=== PATIENT | female | born 1995 ===

== ENCOUNTER 2021-06-25 09:11 | Inpatient (IN) | payer MEDICAID ==
[2021-06-25] MEDS ORDERED: Ondansetron 4 MG/2 ML SDV IVPUSH PRN (09:23)
[2021-06-25] MEDS ORDERED: Sodium Chloride 0.9% 2.5 ML Syringe FLUSH PRN (09:23)
[2021-06-25] MEDS ORDERED: Lidocaine 1% 50 ML MDV INJECT PRN (09:23)
[2021-06-25] MEDS ORDERED: Tranexamic Acid 1,000 MG in Sodium Chloride 0.9% 100 ML IV PRN (09:23)
[2021-06-25] MEDS ORDERED: Butorphanol 1 MG/ML SDV IVPUSH PRN (09:23)
[2021-06-25] MEDS ORDERED: Sodium Chloride 0.9% 20 ML SDV IV PRN (09:23)
[2021-06-25] MEDS ORDERED: Misoprostol 200 MCG Tab PO PRN (09:23)
[2021-06-25] MEDS ORDERED: Methylergonovine 0.2 MG/1 ML Amp IM PRN (09:23)
[2021-06-25] MEDS ORDERED: Carboprost Tromethamine 250 MCG/1 ML Amp IM PRN (09:23)
[2021-06-25] MEDS ORDERED: Sodium Chloride 0.9% 10 ML Syringe FLUSH PRN (09:23)
[2021-06-25] MEDS ORDERED: Water For Irrigation,Sterile 1,000 ML Container IRR PRN (09:23)
[2021-06-25] MEDS ORDERED: Oxytocin/0.9 % Sodium Chloride 30 UNIT/500 ML BAG IV SCH ×2 (09:30→22:00)
[2021-06-25] MEDS: Lactated Ringers 1,000 ML IV SCH ×3 (09:50→19:23)
[2021-06-25] MEDS ORDERED: Ropivacaine 100 ML ONE (10:55)
[2021-06-25] MEDS ORDERED: ePHEDrine 50 MG/ML SDV IVPUSH PRN ×2 (11:06)
[2021-06-25] MEDS ORDERED: Ropivacaine 200 MG in Premix Bag 1 BAG EPIDUR SCH (11:15)
[2021-06-26] MEDS ORDERED: Lanolin 100% Cream 7 GM Tube TOP PRN (00:16)
[2021-06-26] MEDS ORDERED: Benzocaine/Menthol 20%-0.5% Spray 78 GM Cannister TOP PRN (00:16)
[2021-06-26] MEDS ORDERED: Docusate Sodium 100 MG Cap PO PRN (00:16)
[2021-06-26] MEDS ORDERED: Methylergonovine 0.2 MG/1 ML Amp IM PRN (00:16)
[2021-06-26] MEDS ORDERED: Bisacodyl 10 MG Supp RECTAL PRN (00:16)
[2021-06-26] MEDS ORDERED: Tranexamic Acid 1,000 MG in Sodium Chloride 0.9% 100 ML IV PRN (00:16)
[2021-06-26] MEDS ORDERED: Ibuprofen 400 MG Tab PO PRN (00:16)
[2021-06-26] MEDS ORDERED: Witch Hazel Medicated Pads 40/Jar TOP PRN (00:16)
[2021-06-26] MEDS ORDERED: Acetaminophen 500 MG Tab PO PRN (00:16)
[2021-06-26] MEDS: Ibuprofen 800 MG Tab PO PRN ×3 (00:50→21:40)
[2021-06-26] MEDS: Acetaminophen 500 MG Tab PO PRN (05:05)
[2021-06-27] MEDS: Acetaminophen 500 MG Tab PO PRN (05:10)
[2021-06-27] MEDS: Ibuprofen 800 MG Tab PO PRN ×2 (11:37→20:47)
== END 2021-06-27 23:54 | disposition home or self-care (01) | DRG 807 ==
LOC: MW.OBCHECK 09:11 → MW.OB 09:18 → MW.OBCHECK 09:23 → OBSVTOIN 06-26 00:24 → MW.OB 06-26 02:43
PROVIDERS: ADMIT Obstetrics & Gynecology; ATTEND Obstetrics & Gynecology
PROC: 10E0XZZ Delivery of Products of Conception, External Approach (ICD-10-PCS; principal; 2021-06-25)
PROC: 0HQ9XZZ Repair Perineum Skin, External Approach (ICD-10-PCS; 2021-06-25)
PROC: 3E0R3BZ Introduction of Anesthetic Agent into Spinal Canal, Percutaneous Approach (ICD-10-PCS; 2021-06-25)
PROC: 3E0334Z Introduction of Serum, Toxoid and Vaccine into Peripheral Vein, Percutaneous Approach (ICD-10-PCS; 2021-06-25)
DX: O77.0 Labor and delivery complicated by meconium in amniotic fluid (principal); Z37.0 Single live birth; Z3A.39 39 weeks gestation of pregnancy; O70.0 First degree perineal laceration during delivery; Z20.822 Contact with and (suspected) exposure to COVID-19; O26.893 Other specified pregnancy related conditions, third trimester; Z67.91 Unspecified blood type, Rh negative
CPT/HCPCS: 36415; 51702; 82803; 85014; 85018; 85027; 85460; 86592; 86850; 86900; 86901; A9270-GY; J2405; J2790; J2795; J7120; U0002

== ENCOUNTER 2023-10-18 09:46 | Emergency (ER) | payer OTHER ==
[2023-10-18 10:56] LABS: CORONAVIRUS COVID-19 NAA NEGATIVE (NEGATIVE); INFLUENZA A NAA NEGATIVE (NEGATIVE); INFLUENZA B NAA NEGATIVE (NEGATIVE)
[2023-10-18] MEDS: Albuterol/Ipratropium 3.0-0.5 MG/3 ML Neb Soln NEB ONE (12:03)
[2023-10-18] MEDS: predniSONE 10 MG Tab PO ONE (12:03)
[2023-10-18] MEDS: Azithromycin 250 MG Tab PO ONE (12:03)
== END 2023-10-18 12:23 | disposition home or self-care (01) ==
LOC: MW.ED 09:46
DX: O99.512 Diseases of the respiratory system complicating pregnancy, second trimester (principal); J45.901 Unspecified asthma with (acute) exacerbation; J06.9 Acute upper respiratory infection, unspecified; Z75.8 Other problems related to medical facilities and other health care; Z79.899 Other long term (current) drug therapy; Z3A.16 16 weeks gestation of pregnancy
CPT/HCPCS: 0240U; 71045; 99285; A9270; 99283; J7620-GY

== ENCOUNTER 2024-03-28 06:33 | Inpatient (IN) | payer OTHER ==
[2024-03-28] MEDS: Lactated Ringers 1,000 ML IV SCH (07:04)
[2024-03-28] MEDS ORDERED: Ondansetron 4 MG/2 ML SDV IVPUSH PRN (07:22)
[2024-03-28] MEDS ORDERED: Methylergonovine 0.2 MG/1 ML Amp IM PRN (07:22)
[2024-03-28] MEDS ORDERED: Butorphanol 2 MG/ML SDV IVPUSH PRN (07:22)
[2024-03-28] MEDS ORDERED: Water For Irrigation,Sterile 1,000 ML Container IRR PRN (07:22)
[2024-03-28] MEDS ORDERED: Lidocaine 1% 50 ML MDV INJECT PRN (07:22)
[2024-03-28] MEDS ORDERED: Carboprost Tromethamine 250 MCG/1 mL Vial IM PRN (07:22)
[2024-03-28] MEDS ORDERED: Sodium Chloride 0.9% 10 ML Syringe FLUSH PRN (07:22)
[2024-03-28] MEDS ORDERED: Sodium Chloride 0.9% 2.5 ML Syringe FLUSH PRN (07:22)
[2024-03-28] MEDS ORDERED: Sodium Chloride 0.9% 20 ML SDV IV PRN (07:22)
[2024-03-28] MEDS ORDERED: Tranexamic Acid in NACL,ISO-OS 1,000 MG in Premix Bag 1 BAG IV PRN (07:22)
[2024-03-28] MEDS ORDERED: Misoprostol 200 MCG Tab PO PRN (07:22)
[2024-03-28] MEDS ORDERED: Phenylephrine HCl In 0.9% NaCl 1 MG/10 ML Syringe IVPUSH PRN (07:32)
[2024-03-28] MEDS ORDERED: ePHEDrine 50 MG/ML SDV IVPUSH PRN (07:32)
[2024-03-28 07:34] LABS: HEMATOCRIT 32.5 % (37.0-47.0); HEMOGLOBIN 11.2 g/dL (12.0-16.0); MEAN CORPUSCULAR HGB CONC 34.5 g/dL (32.0-36.0); MEAN CORPUSCULAR VOLUME 84.2 fL (83.0-99.0); MEAN PLATELET VOLUME 11.1 fL (9.4-12.3); PLATELET COUNT,PLT 223 K/uL (150-400); RED BLOOD CELL COUNT 3.86 M/uL (4.10-5.30); WHITE BLOOD CELL COUNT,WBC 10.25 K/uL (3.9-11.3)
[2024-03-28] MEDS ORDERED: Ropivacaine HCl/PF 400 MG in Premix Bag 1 BAG EPIDUR SCH (07:45)
[2024-03-28] MEDS ORDERED: dexmedeTOMIDine HCl 200 MCG/2 ML SDV EPIDUR SCH (07:45)
[2024-03-28] MEDS: Oxytocin/0.9 % Sodium Chloride 30 UNIT/500 ML BAG ONE (10:37)
[2024-03-28] MEDS: Phenylephrine HCl In 0.9% NaCl 1 MG/10 ML Syringe ONE (10:37)
[2024-03-28] MEDS: dexmedeTOMIDine HCl 200 MCG/2 ML SDV ONE (10:38)
[2024-03-28] MEDS: Ropivacaine HCl/PF 200 ML ONE (10:38)
[2024-03-28] MEDS: Oxytocin/0.9 % Sodium Chloride 30 UNIT/500 ML BAG IV SCH (11:48)
[2024-03-28] MEDS ORDERED: Benzocaine/Menthol 20%-0.5% Spray 78 GM Cannister TOP PRN (12:01)
[2024-03-28] MEDS ORDERED: Acetaminophen 500 MG Tab PO PRN (12:01)
[2024-03-28] MEDS ORDERED: Lanolin 100% Cream 7 GM Tube TOP PRN (12:01)
[2024-03-28] MEDS ORDERED: oxyCODONE 5 MG Tab PO PRN (12:01)
[2024-03-28] MEDS: Ibuprofen 800 MG Tab PO PRN (14:25)
[2024-03-28 14:26] LABS: PH,UMBILICAL ARTERIAL 7.2 (7.18-7.38); PH,UMBILICAL VENOUS 7.28 (7.25-7.45)
[2024-03-28] MEDS: Witch Hazel Medicated Pads 40/Jar TOP PRN (14:40)
[2024-03-28] MEDS: Docusate Sodium 100 MG Cap PO PRN (20:28)
[2024-03-29 07:05] LABS: HEMATOCRIT 29.4 % (37.0-47.0)
== END 2024-03-29 15:30 | disposition home or self-care (01) | DRG 807 ==
LOC: MW.OBCHECK 06:33 → MW.OB 06:35 → MW.OBCHECK 11:46 → OBSVTOIN 12:01 → MW.OB 17:22
PROVIDERS: ADMIT Obstetrics & Gynecology; ATTEND Obstetrics & Gynecology
PROC: 10E0XZZ Delivery of Products of Conception, External Approach (ICD-10-PCS; principal; 2024-03-28)
PROC: 3E0R3BZ Introduction of Anesthetic Agent into Spinal Canal, Percutaneous Approach (ICD-10-PCS; 2024-03-28)
PROC: 00HU33Z Insertion of Infusion Device into Spinal Canal, Percutaneous Approach (ICD-10-PCS; 2024-03-28)
PROC: 10907ZC Drainage of Amniotic Fluid, Therapeutic from Products of Conception, Via Natural or Artificial Opening (ICD-10-PCS; 2024-03-28)
DX: O99.52 Diseases of the respiratory system complicating childbirth (principal); Z37.0 Single live birth; J45.909 Unspecified asthma, uncomplicated; O70.0 First degree perineal laceration during delivery; O77.0 Labor and delivery complicated by meconium in amniotic fluid; Z3A.39 39 weeks gestation of pregnancy; Z90.79 Acquired absence of other genital organ(s); Z90.722 Acquired absence of ovaries, bilateral
CPT/HCPCS: 36415; 51702; 59025; 82803; 85014; 85018; 85027; 86592; 86850; 86900; 86901; A9270-GY; J2371; J2590; J2795; J7120